=== PATIENT | female | born 1995 | race Caucasian/White ===

== ENCOUNTER 2018-03-27 03:47 | Emergency (ER) | payer SELFPAY ==
[2018-03-27 04:27] VITALS: RESP 18; TEMP 98.2; O2SAT 100
[2018-03-27 04:45] LABS: BASO % 0.6 % (0.0-2.0); EOS # 0.2 K/uL (0.0-0.7); EOS % 2.2 % (0.0-4.0); HEMOGLOBIN 11.7 g/dL (11.0-16.0); LYMPH # 2.8 K/uL (1.0-4.3); LYMPH % 38.8 % (20.0-40.0); MEAN CELL VOLUME 80.1 fL (81.0-99.0); MEAN CORPUSCULAR HGB CONC 32.5 g/dL (33.0-37.0); MEAN PLATELET VOLUME 9.8 fL (7.2-11.7); MONO # 0.5 K/uL (0.0-0.8); MONO % 7.3 % (0.0-10.0); NEUT # 3.6 K/uL (1.8-7.0); NEUT % 51.1 % (50.0-75.0); RBC 4.51 Mil/uL (3.80-5.20); RED CELL DISTRIBUTION WIDTH 16.1 % (11.5-14.5); WHITE BLOOD COUNT 7.1 K/uL (4.8-10.8)
[2018-03-27 04:47] LABS: SQUAMOUS EPITHIAL 6 /hpf (0-5); URINE BILIRUBIN NEGATIVE (NEGATIVE); URINE CLARITY Hazy (Clear); URINE COLOR Yellow (YELLOW); URINE GLUCOSE (UA) NORMAL (Normal); URINE HYALINE CAST 0-2 /lpf (0-2); URINE LEUKOCYTE ESTERASE NEG Leu/uL (Negative); URINE PROTEIN NEGATIVE (NEGATIVE); URINE UROBILINOGEN NORMAL mg/dL (0.2-1.0)
[2018-03-27 04:56] LABS: CALCIUM 9.4 mg/dl (8.6-10.4); GFR AFRICAN-AMERICAN > 60; GFR NON-AFRICAN AMERICAN > 60
[2018-03-27 04:58] LABS: URINE BLOOD NEGATIVE (NEGATIVE)
[2018-03-27 05:13] LABS: ALB/GLOB RATIO 1.2 (1.0-2.1); ALBUMIN 4.9 g/dL (3.5-5.0); ALT/SGPT 24 U/L (9-52); AST/SGOT 37 U/L (14-36); BLOOD UREA NITROGEN 16 mg/dL (7-17)
--- NOTE | 2018-03-27 05:13 | C.PDOC ---
History Of Present Illness Patient is a 22 y/o female who is A2 who presents to the ED with a complaint of crampy lower abdominal pain. Patient reports to have bled twice in January, on the and , and subsequently passed two blood clots. Patient also admits to positive at home test; denies any care, nausea , vomiting, diarrhea, fever, or chills. No other physical complaints. Time Seen by Provider: 03/27/18 04:02 Chief Complaint (Nursing): Female Genitourinary History Per: Patient History/Exam Limitations: no limitations Onset/Duration Of Symptoms: Days Current Symptoms Are (Timing): Still Present Quality Of Discomfort: Cramping Associated Symptoms: denies: Fever, Chills, Nausea, Vomiting Recent travel outside of the [place]: No Abnormal Vaginal Bleeding: Yes : 3 Para: 1 Miscarriage: 2 Past Medical History Reviewed: Historical Data, Nursing Documentation, Vital Signs Vital Signs: Last Vital Signs Temp 98.2 F 03/27/18 04:01 Pulse 68 03/27/18 04:01 Resp 18 03/27/18 04:01 BP 100/65 03/27/18 04:01 Pulse Ox 100 03/27/18 06:00 - Medical History PMH: No Chronic Diseases Other Surgeries: Family History: States: No Known Family Hx - Social History Hx Tobacco Use: No Hx Alcohol Use: No Hx Substance Use: No - Immunization History Hx Tetanus Toxoid Vaccination: No Hx Influenza Vaccination: No Hx Pneumococcal Vaccination: No Review Of Systems Constitutional: Negative for: Fever, Chills Gastrointestinal: Positive for: Abdominal Pain (crampy lower abdominal pain). Negative for: Nausea, Vomiting, Diarrhea Genitourinary: Positive for: Vaginal Bleeding Physical Exam - Physical Exam Appears: Non-toxic, No Acute Distress Skin: Normal Color, Warm, Dry Head: Atraumatic, Normacephalic Oral Mucosa: Moist Chest: Symmetrical Cardiovascular: Rhythm Regular, No Murmur Respiratory: Normal Breath Sounds, No Rales, No Rhonchi, No Wheezing Gastrointestinal/Abdominal: Soft, Tenderness (mild left pelvic tenderness), No Guarding, No Rebound Back: Normal Inspection, No CVA Tenderness Extremity: Normal ROM Neurological/Psych: Oriented x3, Normal Speech, Normal Cognition ED Course And Treatment - Laboratory Results Result Diagrams: 03/27/18 04:37 03/27/18 04:37 O2 Sat by Pulse Oximetry: 100 Medical Decision Making Medical Decision Making: Blood work ordered. POC urine negative. Serum beta negative. 0545 pt with bhcg less than 2. results discussed with patient. unclear if pt was ever . bleeding today likely menses. abdomen soft, nd, mild lower abdomen tenderness. 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 Bleeding today is most likely your period. Tylenol or Motrin for pain. Return to ER for any wors esymptms. Unclear if you were at some time in recent past, not at this time. Instructions: Absent or Irregular Periods Forms: [facility] (Bruneian), General Discharge Instructions Print Language: OCCITAN - POA Present On Arrival: None - Clinical Impression Clinical Impression: Abnormal vaginal bleeding - Scribe Statement The provider has reviewed the documentation as recorded by the Scribe Analisa López All medical record entries made by the Scribe were at my direction and personally dictated by me. I have reviewed the chart and agree that the record accurately reflects my personal performance of the history, physical exam, medical decision making, and the department course for this patient. I have also personally directed, reviewed, and agree with the discharge instructions and disposition.
[2018-03-27 06:49] VITALS: BP 98/64; PULSE 62
== END 2018-03-27 06:49 | disposition home or self-care (01) ==
LOC: C.ER 03:47
DX: N93.9 Abnormal uterine and vaginal bleeding, unspecified (principal)